=== PATIENT | male | born 1955 | race Caucasian/White ===

== ENCOUNTER → 2017-10-06 | Outpatient (CLI) | payer MEDICAID, MEDICARE | LOC: CFH 15:29 | PROVIDERS: ATTEND Neurological Surgery | DX: M51.34 Other intervertebral disc degeneration, thoracic region (principal); M51.26 Other intervertebral disc displacement, lumbar region; M48.061 Spinal stenosis, lumbar region without neurogenic claudication; E88.2 Lipomatosis, not elsewhere classified | CPT/HCPCS: 72146 ==

== ENCOUNTER → 2017-10-08 | Outpatient (CLI) | payer MEDICARE ==
[~2017-10-08] MED LIST: AMLO10TA2 PO; CHLO25TA PO; CHOL400T10 PO; CHOL500050 PO; CYAN1TAB29 PO; FISH1CAP PO; FOLI-17 PO; HYDR-3341 PO; LISI40TA PO; OMEP40CA6 PO; POLY17PO5 PO; PRAV20TA PO; THIA250T4 PO; TIOT18CA INH; fioricet PO
[2017-10-08 11:09] LABS: BASOPHILS # (AUTO) 0.04 x10^3/uL (0-0.1); BASOPHILS % (AUTO) 0 % (0-1); EOSINOPHILS # (AUTO) 0.07 x10^3/uL (0-0.4); EOSINOPHILS % (AUTO) 1 % (1-7); LYMPHOCYTES # (AUTO) 1.95 x10^3/uL (1-3.4); LYMPHOCYTES % (AUTO) 19 % (22-44); MD NO; MEAN CORPUSCULAR HEMOGLOBIN 30.7 pg (27.5-34.5); MEAN CORPUSCULAR HGB CONC 33.1 g/dL (33.2-36.2); MEAN CORPUSCULAR VOLUME 92.6 fL (81-97); MEAN PLATELET VOLUME 7.6 fL (7.4-10.4); MONOCYTES # (AUTO) 0.83 x10^3/uL (0.2-0.8); MONOCYTES % (AUTO) 8 % (2-9); NEUTROPHILS # (AUTO) 7.46 x10^3/uL (1.8-6.8); NEUTROPHILS % (AUTO) 72 % (42-75); PLATELET COUNT 240 x10^3/uL (130-400); RED CELL DISTRIBUTION WIDTH 14.7 % (9.4-14.8)
[2017-10-08 11:17] LABS: INTERNATIONAL NORMALIZED RATIO 0.96 (0.93-1.1)
[2017-10-08 11:21] LABS: ANION GAP 6 mmol/L (5-15); CALCIUM 9.8 mg/dL (8.5-10.1); CHLORIDE 102 mmol/L (98-107)
[2017-10-08 11:25] LABS: ALANINE AMINOTRANSFERASE 22 U/L (12-78); ALKALINE PHOSPHATASE 156 U/L (45-117); BILIRUBIN,TOTAL 0.7 mg/dL (0.2-1.0); CREATININE 0.97 mg/dL (0.7-1.3); TOTAL PROTEIN 7.7 g/dL (6.4-8.2)
== END | disposition home or self-care (01) ==
LOC: STAR 09:45
PROVIDERS: ATTEND Neurological Surgery
DX: Z01.818 Encounter for other preprocedural examination (principal); M48.061 Spinal stenosis, lumbar region without neurogenic claudication; I87.8 Other specified disorders of veins; J81.1 Chronic pulmonary edema; I45.10 Unspecified right bundle-branch block; I51.7 Cardiomegaly
CPT/HCPCS: 36415; 71046; 80053; 85025; 85610; 85730; 93005

== ENCOUNTER → 2018-02-16 | Outpatient (CLI) | payer MEDICARE ==
[~2018-02-16] MED LIST changes: -AMLO10TA2 PO; +AMLO10TA6 PO
== END | disposition home or self-care (01) ==
LOC: CFH 13:00
PROVIDERS: ATTEND Neurological Surgery
DX: M51.36 Other intervertebral disc degeneration, lumbar region (principal); M48.061 Spinal stenosis, lumbar region without neurogenic claudication; M25.78 Osteophyte, vertebrae; R60.9 Edema, unspecified
CPT/HCPCS: 72100; 72148

== ENCOUNTER → 2018-03-05 | Outpatient (CLI) | payer MEDICARE ==
[2018-03-05 14:30] LABS: BASOPHILS # (AUTO) 0.04 x10^3/uL (0-0.1); BASOPHILS % (AUTO) 1 % (0-1); EOSINOPHILS # (AUTO) 0.06 x10^3/uL (0-0.4); EOSINOPHILS % (AUTO) 1 % (1-7); LYMPHOCYTES # (AUTO) 2.32 x10^3/uL (1-3.4); LYMPHOCYTES % (AUTO) 24 % (22-44); MD NO; MEAN CORPUSCULAR HGB CONC 33.9 g/dL (33.2-36.2); MEAN CORPUSCULAR VOLUME 91.6 fL (81-97); MEAN PLATELET VOLUME 7.6 fL (7.4-10.4); MONOCYTES # (AUTO) 0.68 x10^3/uL (0.2-0.8); MONOCYTES % (AUTO) 7 % (2-9); NEUTROPHILS # (AUTO) 6.54 x10^3/uL (1.8-6.8); NEUTROPHILS % (AUTO) 68 % (42-75); PLATELET COUNT 339 x10^3/uL (130-400); RED BLOOD COUNT 5.82 x10^6/uL (4.38-5.82); RED CELL DISTRIBUTION WIDTH 13.8 % (9.4-14.8)
== END | disposition home or self-care (01) ==
LOC: RAD 13:57
PROVIDERS: ATTEND Neurological Surgery
DX: Z01.812 Encounter for preprocedural laboratory examination (principal); M48.062 Spinal stenosis, lumbar region with neurogenic claudication; R79.1 Abnormal coagulation profile
CPT/HCPCS: 36415; 71046; 85025

== ENCOUNTER 2019-08-21 16:19 | Inpatient (IN) | payer MEDICARE, OTHER ==
[~2019-08-21] VITALS: Ht 167.6 cm; Wt 88.1 kg
[~2019-08-21 16:19] MED LIST changes: -AMLO10TA6 PO; +AMLO10TA8 PO; +OMEP40CA42 PO; -OMEP40CA6 PO; -THIA250T4 PO; +THIA250T7 PO
[2019-08-21] MEDS ORDERED: SODIUM CHLORIDE FLUSH 10ML SYR IVF ONE (17:00)
--- NOTE | 2019-08-21 17:18 | NUR ---
Break Nurse note: PIV established. Lab work drawn and given to label drier. CXR at bedside. pt denies any additional needs at this time. Call light within reach.
[2019-08-21 17:28] LABS: BASOPHILS # (AUTO) 0.02 x10^3/uL (0-0.1); BASOPHILS % (AUTO) 0 % (0-1); EOSINOPHILS # (AUTO) 0.09 x10^3/uL (0-0.4); EOSINOPHILS % (AUTO) 2 % (1-7); LYMPHOCYTES # (AUTO) 1.25 x10^3/uL (1-3.4); LYMPHOCYTES % (AUTO) 23 % (22-44); MD NO; MEAN CORPUSCULAR HEMOGLOBIN 31.6 pg (27.5-34.5); MEAN PLATELET VOLUME 8.2 fL (7.4-10.4); MONOCYTES # (AUTO) 0.65 x10^3/uL (0.2-0.8); MONOCYTES % (AUTO) 12 % (2-9); NEUTROPHILS # (AUTO) 3.47 x10^3/uL (1.8-6.8); NEUTROPHILS % (AUTO) 63 % (42-75); PLATELET COUNT 196 x10^3/uL (130-400); RED BLOOD COUNT 5.31 x10^6/uL (4.38-5.82); RED CELL DISTRIBUTION WIDTH 15.1 % (9.4-14.8)
[2019-08-21 17:40] LABS: ALANINE AMINOTRANSFERASE 21 U/L (12-78); ALBUMIN 3.6 g/dL (3.4-5.0); ANION GAP 1 mmol/L (5-15); CALCIUM 9.6 mg/dL (8.5-10.1); CHLORIDE 108 mmol/L (98-107); CREATININE 0.65 mg/dL (0.7-1.3)
[2019-08-21 17:45] LABS: ALKALINE PHOSPHATASE 122 U/L (45-117); BILIRUBIN,TOTAL 0.1 mg/dL (0.2-1.0); TOTAL PROTEIN 7.4 g/dL (6.4-8.2); TROPONIN I < 0.015 ng/mL (0.000-0.045)
[2019-08-21] MEDS ORDERED: PIPERACILLIN/TAZO/PMX 3.375GM 50 ML IV ONE (18:00)
[2019-08-21] MEDS ORDERED: PIPERACILLIN/TAZO/PMX 3.375GM 50 ML ONE (18:14)
--- NOTE | 2019-08-21 18:20 | NUR ---
THROUGHPUT: PT DENIED FROM [facility]
--- NOTE | 2019-08-21 18:22 | NUR ---
AWAITING LAB DRAW OF BLOOD CULTURES X 2 BEFORE ADM OF ABX
--- NOTE | 2019-08-21 18:40 | NUR ---
UNABLE TO COMPLETE MED REC PT DOES NOT RECALL MEDICATIONS OR DOSES.
--- NOTE | 2019-08-21 18:46 | NUR ---
GIRLFRIEND DAVID CALLED. PER PT OK TO DISCUSS POC WITH GIRLFRIEND. MEI NUMBER IS
[2019-08-21] MEDS ORDERED: VANCOMYCIN PER PHARMACY MC PRN (19:00)
[2019-08-21] MEDS ORDERED: ERGOCALCIFEROL 50,000 UNIT CAPSULE PO SCH (19:00)
[2019-08-21] MEDS ORDERED: POLYETHYLENE GLYCOL 17 GM PACKET PO PRN (19:00)
[2019-08-21] MEDS ORDERED: BISACODYL 10 MG SUPP PR PRN (19:00)
[2019-08-21] MEDS ORDERED: ACETAMINOPHEN 325 MG TABLET PO PRN (19:00)
[2019-08-21] MEDS ORDERED: ONDANSETRON ODT 4 MG PO PRN (19:00)
[2019-08-21] MEDS ORDERED: PHARMACOKINETIC CONSULTATION MC ONE (21:00)
[2019-08-21] MEDS ORDERED: VANCOMYCIN 2,200 MG in SODIUM CHLORIDE 0.9% 500 ML IV ONE (21:00)
[2019-08-21] MEDS ORDERED: PHARMACOKINETIC MONITORING MC PRN (21:00)
[2019-08-21] MEDS: PRAVASTATIN 20 MG TABLET PO SCH (21:50)
[2019-08-21] MEDS: SODIUM CHLORIDE FLUSH 10ML SYR IVF SCH (21:51)
[2019-08-21] MEDS: HEPARIN 5,000 UNITS/ML, 1ML SQ SCH (21:53)
[2019-08-21] MEDS: NICOTINE 14MG/24 HR PATCH.TD24 TD SCH (21:55)
[2019-08-21 22:00] VITALS: BP 172/94
[2019-08-21] MEDS: BUTALB/APAP/CAFFEINE 50MG/325MG/40MG PO PRN (23:35)
[2019-08-22] MEDS: PIPERACILLIN/TAZO/PMX 3.375GM 50 ML IV SCH ×5 (01:33→20:20)
[2019-08-22 02:25] VITALS: BP 162/89
[2019-08-22 05:15] LABS: BASOPHILS # (AUTO) 0.02 x10^3/uL (0-0.1); BASOPHILS % (AUTO) 0 % (0-1); EOSINOPHILS # (AUTO) 0.12 x10^3/uL (0-0.4); EOSINOPHILS % (AUTO) 2 % (1-7); LYMPHOCYTES # (AUTO) 1.31 x10^3/uL (1-3.4); LYMPHOCYTES % (AUTO) 21 % (22-44); MD NO; MEAN CORPUSCULAR HEMOGLOBIN 31.8 pg (27.5-34.5); MEAN CORPUSCULAR HGB CONC 33.6 g/dL (33.2-36.2); MEAN CORPUSCULAR VOLUME 94.8 fL (81-97); MEAN PLATELET VOLUME 7.9 fL (7.4-10.4); MONOCYTES # (AUTO) 0.76 x10^3/uL (0.2-0.8); MONOCYTES % (AUTO) 12 % (2-9); NEUTROPHILS # (AUTO) 4.02 x10^3/uL (1.8-6.8); NEUTROPHILS % (AUTO) 65 % (42-75); PLATELET COUNT 184 x10^3/uL (130-400); RED BLOOD COUNT 5.03 x10^6/uL (4.38-5.82); RED CELL DISTRIBUTION WIDTH 14.9 % (9.4-14.8)
[2019-08-22 05:31] LABS: ANION GAP 3 mmol/L (5-15); CALCIUM 9.5 mg/dL (8.5-10.1); CHLORIDE 109 mmol/L (98-107); CREATININE 0.53 mg/dL (0.7-1.3)
[2019-08-22] MEDS: GUAIFENESIN/DM 200-20MG, 10ML UDC PO PRN ×2 (06:24→20:15)
[2019-08-22] MEDS: HEPARIN 5,000 UNITS/ML, 1ML SQ SCH ×2 (06:24→13:47)
[2019-08-22] MEDS: OMEPRAZOLE 20 MG CAPSULE.DR PO SCH (06:25)
[2019-08-22] MEDS: LISINOPRIL 40 MG TABLET PO SCH (08:36)
[2019-08-22] MEDS: CHOLECALCIFEROL 400 UNITS TABLET PO SCH (08:36)
[2019-08-22] MEDS: CYANOCOBALAMIN 1,000 MCG TABLET PO SCH (08:37)
[2019-08-22] MEDS: OMEGA-3/FISH OIL CAPSULE PO SCH (08:37)
[2019-08-22] MEDS: THIAMINE 100MG TABLET PO SCH (08:37)
[2019-08-22] MEDS: FOLIC ACID 1 MG TABLET PO SCH (08:38)
[2019-08-22] MEDS: AMLODIPINE 10 MG TAB PO SCH (08:38)
[2019-08-22] MEDS: CHLORTHALIDONE 25 MG TABLET PO SCH (08:38)
[2019-08-22] MEDS: POLYETHYLENE GLYCOL 17 GM PACKET PO SCH (08:38)
[2019-08-22] MEDS: SENNA/DOCUSATE TABLET PO SCH (08:38)
[2019-08-22] MEDS: BUTALB/APAP/CAFFEINE 50MG/325MG/40MG PO PRN ×3 (08:38→21:03)
[2019-08-22] MEDS: SODIUM CHLORIDE FLUSH 10ML SYR IVF SCH ×2 (08:39→20:21)
[2019-08-22 08:45] VITALS: BP 167/95
[2019-08-22] MEDS ORDERED: CYANOCOBALAMIN 1,000 MCG TABLET PO SCH (09:00)
[2019-08-22] MEDS ORDERED: IPRATROPIUM 0.5 MG/2.5 ML INHA NPPB SCH (09:00)
[2019-08-22 14:00] VITALS: BP 147/83
[2019-08-22] MEDS: VANCOMYCIN 1,700 MG in SODIUM CHLORIDE 0.9% 250 ML IV SCH (15:26)
[2019-08-22] MEDS: NICOTINE 14MG/24 HR PATCH.TD24 TD SCH (20:20)
[2019-08-22] MEDS: PRAVASTATIN 20 MG TABLET PO SCH (20:20)
[2019-08-22 20:24] VITALS: BP 145/85
[2019-08-22] MEDS: ENOXAPARIN 40 MG/0.4 ML SQ SCH (22:09)
[2019-08-23] MEDS: PIPERACILLIN/TAZO/PMX 3.375GM 50 ML IV SCH ×4 (02:20→20:59)
[2019-08-23 02:38] VITALS: BP 141/70
[2019-08-23 06:13] LABS: ANION GAP 4 mmol/L (5-15); CHLORIDE 105 mmol/L (98-107)
[2019-08-23 06:22] LABS: BASOPHILS # (AUTO) 0.02 x10^3/uL (0-0.1); BASOPHILS % (AUTO) 0 % (0-1); EOSINOPHILS % (AUTO) 2 % (1-7); LYMPHOCYTES % (AUTO) 27 % (22-44); MD NO; MEAN CORPUSCULAR HEMOGLOBIN 31.5 pg (27.5-34.5); MEAN CORPUSCULAR HGB CONC 33.3 g/dL (33.2-36.2); MEAN CORPUSCULAR VOLUME 94.7 fL (81-97); MEAN PLATELET VOLUME 8.2 fL (7.4-10.4); MONOCYTES # (AUTO) 0.61 x10^3/uL (0.2-0.8); MONOCYTES % (AUTO) 11 % (2-9); NEUTROPHILS # (AUTO) 3.32 x10^3/uL (1.8-6.8); NEUTROPHILS % (AUTO) 60 % (42-75); PLATELET COUNT 190 x10^3/uL (130-400); RED BLOOD COUNT 5.29 x10^6/uL (4.38-5.82); RED CELL DISTRIBUTION WIDTH 14.7 % (9.4-14.8)
[2019-08-23 08:10] VITALS: BP 149/85
[2019-08-23] MEDS: OMEGA-3/FISH OIL CAPSULE PO SCH (08:18)
[2019-08-23] MEDS: CYANOCOBALAMIN 1,000 MCG TABLET PO SCH (08:18)
[2019-08-23] MEDS: THIAMINE 100MG TABLET PO SCH (08:18)
[2019-08-23] MEDS: SENNA/DOCUSATE TABLET PO SCH (08:19)
[2019-08-23] MEDS: LISINOPRIL 40 MG TABLET PO SCH (08:19)
[2019-08-23] MEDS: FOLIC ACID 1 MG TABLET PO SCH (08:19)
[2019-08-23] MEDS: CHLORTHALIDONE 25 MG TABLET PO SCH (08:19)
[2019-08-23] MEDS: AMLODIPINE 10 MG TAB PO SCH (08:19)
[2019-08-23] MEDS: POLYETHYLENE GLYCOL 17 GM PACKET PO SCH ×2 (08:20→08:57)
[2019-08-23] MEDS: CHOLECALCIFEROL 400 UNITS TABLET PO SCH (08:20)
[2019-08-23] MEDS: SODIUM CHLORIDE FLUSH 10ML SYR IVF SCH ×2 (08:21→21:00)
[2019-08-23] MEDS: OMEPRAZOLE 20 MG CAPSULE.DR PO SCH (08:21)
[2019-08-23] MEDS: VANCOMYCIN 1,700 MG in SODIUM CHLORIDE 0.9% 250 ML IV SCH (09:54)
[2019-08-23] MEDS: BUTALB/APAP/CAFFEINE 50MG/325MG/40MG PO PRN ×2 (15:18→21:00)
[2019-08-23 15:22] VITALS: BP 143/91
[2019-08-23 19:32] VITALS: BP 119/76
[2019-08-23] MEDS: NICOTINE 14MG/24 HR PATCH.TD24 TD SCH (20:59)
[2019-08-23] MEDS: PRAVASTATIN 20 MG TABLET PO SCH (20:59)
[2019-08-23] MEDS: ENOXAPARIN 40 MG/0.4 ML SQ SCH (20:59)
[2019-08-23 23:01] VITALS: BP 127/80
[2019-08-24 01:27] VITALS: BP 122/78
[2019-08-24] MEDS: PIPERACILLIN/TAZO/PMX 3.375GM 50 ML IV SCH ×3 (02:34→13:18)
[2019-08-24] MEDS: VANCOMYCIN 1,700 MG in SODIUM CHLORIDE 0.9% 250 ML IV SCH (04:03)
[2019-08-24 07:23] VITALS: BP 128/73
[2019-08-24] MEDS: POLYETHYLENE GLYCOL 17 GM PACKET PO SCH (07:29)
[2019-08-24] MEDS: AMLODIPINE 10 MG TAB PO SCH (08:19)
[2019-08-24] MEDS: LISINOPRIL 40 MG TABLET PO SCH (08:19)
[2019-08-24] MEDS: CHOLECALCIFEROL 400 UNITS TABLET PO SCH (08:19)
[2019-08-24] MEDS: CHLORTHALIDONE 25 MG TABLET PO SCH (08:19)
[2019-08-24] MEDS: SENNA/DOCUSATE TABLET PO SCH (08:19)
[2019-08-24] MEDS: FOLIC ACID 1 MG TABLET PO SCH (08:19)
[2019-08-24] MEDS: CYANOCOBALAMIN 1,000 MCG TABLET PO SCH (08:19)
[2019-08-24] MEDS: OMEPRAZOLE 20 MG CAPSULE.DR PO SCH (08:19)
[2019-08-24] MEDS: OMEGA-3/FISH OIL CAPSULE PO SCH (08:19)
[2019-08-24] MEDS: THIAMINE 100MG TABLET PO SCH (08:55)
[2019-08-24] MEDS: BUTALB/APAP/CAFFEINE 50MG/325MG/40MG PO PRN (08:55)
[2019-08-24] MEDS: SODIUM CHLORIDE FLUSH 10ML SYR IVF SCH (08:55)
[2019-08-24] MEDS ORDERED: AMOX1TAB64 PO (13:43)
[2019-08-24 14:12] VITALS: BP 99/62
== END 2019-08-24 14:49 | disposition home or self-care (01) | DRG 177 ==
LOC: ED 17:00 → EDIP 18:07 → 3WST 20:00 → 3N 08-23 18:19
PROVIDERS: ADMIT Internal Medicine; ATTEND Family Medicine
DX: J15.6 Pneumonia due to other Gram-negative bacteria (principal); J96.01 Acute respiratory failure with hypoxia; I50.30 Unspecified diastolic (congestive) heart failure; F17.200 Nicotine dependence, unspecified, uncomplicated; E78.5 Hyperlipidemia, unspecified; G43.909 Migraine, unspecified, not intractable, without status migrainosus; I11.0 Hypertensive heart disease with heart failure; Y95 Nosocomial condition; Z20.828 Contact with and (suspected) exposure to other viral communicable diseases
CPT/HCPCS: 36415; 71045; 80048; 80053; 80202; 80307; 83880; 84484; 85025; 87040; 87070; 87205; 93005; 96374; 96375; 99285; G0378; J1644; J1650; J2543; J3370; J7040; J7050

== ENCOUNTER 2021-01-18 13:56 | Inpatient (IN) | payer MEDICARE, OTHER ==
[~2021-01-18] VITALS: Ht 167.6 cm; Wt 81.1 kg
[~2021-01-18 13:56] MED LIST changes: +AMLO-211 PO; -AMLO10TA8 PO; +AMOX1TAB64 PO; -FOLI-17 PO; +FOLI1TAB32 PO; -LISI40TA PO; +LISI40TA9 PO; -OMEP40CA42 PO; +OMEP40CA8 PO
--- NOTE | 2021-01-18 15:09 | NUR ---
ACUTE CARE OCCUPATIONAL THERAPIST: CALLED FOR ROOM, NO ANSWER
[2021-01-18 15:16] LABS: BASOPHILS % (AUTO) 1 % (0-1); EOSINOPHILS % (AUTO) 1 % (1-7); LYMPHOCYTES % (AUTO) 21 % (22-44); MEAN CORPUSCULAR HEMOGLOBIN 32.5 pg (27.5-34.5); MEAN CORPUSCULAR HGB CONC 34.6 g/dL (33.2-36.2); MEAN PLATELET VOLUME 8.1 fL (7.4-10.4); MONOCYTES % (AUTO) 8 % (2-9); NEUTROPHILS % (AUTO) 69 % (42-75); PLATELET COUNT 204 x10^3/uL (130-400); RED BLOOD COUNT 6.46 x10^6/uL (4.38-5.82); RED CELL DISTRIBUTION WIDTH 15.4 % (9.4-14.8)
[2021-01-18 15:16] LABS: RAPID INFLUENZA A Negative (Negative); RAPID INFLUENZA B Negative (Negative)
[2021-01-18 15:29] LABS: ALBUMIN 3.6 g/dL (3.4-5.0); ANION GAP 9 mmol/L (5-15); CALCIUM 9.6 mg/dL (8.5-10.1); CHLORIDE 105 mmol/L (98-107)
[2021-01-18 15:33] LABS: ALANINE AMINOTRANSFERASE 28 U/L (12-78); ALKALINE PHOSPHATASE 110 U/L (45-117); BILIRUBIN,TOTAL 0.6 mg/dL (0.2-1.0); CREATININE 0.66 mg/dL (0.7-1.3); TOTAL PROTEIN 7.6 g/dL (6.4-8.2)
--- NOTE | 2021-01-18 15:46 | NUR ---
fermentologist note: Pt to room from lobby, ambulatory with steady gait.
--- NOTE | 2021-01-18 16:06 | NUR ---
PT TO ROOM 35 W/ C/O COUGH STARTED WHEN THE SMOKE STARTED OVER A MONTH AGO. PT STATES COUGH THAT STARTS AND PER PT "HAS NO CAP" MEANING PT WILL START COUGHING AND DOES NOT STOP. PER PT IS A SMOKER. PT RESTING ON GURNEY. NADN. MONITORS APPLIED. O2 NOTED TO BE 85% RA W/ GOOD WAVEFORM. PT PLACED ON 3L NC. WARM BLANKET PROVIDED. CALL LIGHT IN REACH. ERP DR. BOYLE AT BEDSIDE. AWARE OF PT'S O2 SATS.
--- NOTE | 2021-01-18 16:58 | NUR ---
PT RESTING ON GURBANQUETE. NADN. VSS ON 3L HI.
[2021-01-18] MEDS ORDERED: CEFTRIAXONE 1,000 MG in DEXTROSE 5% 50 ML IVPB ONE (17:30)
[2021-01-18] MEDS: AZITHROMYCIN 500 MG in SODIUM CHLORIDE 0.9% 250 ML IVPB ONE ×2 (17:30→19:07)
--- NOTE | 2021-01-18 17:36 | NUR ---
PT RESTING ON GURNEY. NADN. VARELA.
[2021-01-18] MEDS ORDERED: BUTALB/APAP/CAFFEINE 50MG/325MG/40MG PO ONE ×2 (18:00→22:00)
--- NOTE | 2021-01-18 18:06 | NUR ---
THROUGHPUT: PT TRANSFER DECLINED BY [facility] ([place]), [facility] FORM FAXED & PLACED IN FOLDER WITH FAX CONFIRMATION, EMAIL SENT.
--- NOTE | 2021-01-18 18:30 | NUR ---
BREAK RN: PT MEDICATED PER EMAR, MEAL TRAY PROVIDED.
--- NOTE | 2021-01-18 18:57 | NUR ---
PT RESTING ON GURNEY. NADN. VARELA.
[2021-01-18] MEDS ORDERED: SODIUM CHLORIDE FLUSH 10ML SYR IVF PRN (19:00)
[2021-01-18] MEDS ORDERED: DOCUSATE 100 MG CAPSULE PO PRN (19:00)
--- NOTE | 2021-01-18 19:08 | NUR ---
PT RESTING ON GURNEY. SARABIA VSS. AWARE OF POC FOR ADMISSION.
--- NOTE | 2021-01-18 20:01 | NUR ---
PT RESTING ON GURNEY. NADN. VARELA.
[2021-01-18 20:14] LABS: TROPONIN I < 0.015 ng/mL (0.000-0.045)
--- NOTE | 2021-01-18 20:46 | NUR ---
PT RESTING ON GURNEY. NADN. VARELA.
--- NOTE | 2021-01-18 20:51 | NUR ---
REPORT GIVEN TO PEPITO PATEL.
--- NOTE | 2021-01-18 20:57 | NUR ---
REPORT GIVEN TO PEPITO ZUNIGA. ALL QUESTIONS ANSWERED. AWAITING PT TRANSPORT.
[2021-01-18] MEDS ORDERED: MELATONIN 5 MG TABLET PO PRN (21:00)
[2021-01-18 21:10] VITALS: BP_SYST 122; BP_SYST 146; BP_DIAS 64; BP_DIAS 81
[2021-01-18] MEDS: ENOXAPARIN 40 MG/0.4 ML SQ SCH (22:37)
[2021-01-18] MEDS: ALBUTEROL-IPRATROPIUM MDI INH INH SCH (22:37)
[2021-01-19 02:33] VITALS: BP 129/84
[2021-01-19 06:15] LABS: HCT (SEDRATE) 58.2 % (39.2-51.8)
[2021-01-19 06:18] LABS: BASOPHILS % (AUTO) 0 % (0-1); EOSINOPHILS % (AUTO) 0 % (1-7); LYMPHOCYTES % (AUTO) 16 % (22-44); MEAN CORPUSCULAR HEMOGLOBIN 31.9 pg (27.5-34.5); MEAN CORPUSCULAR HGB CONC 33.8 g/dL (33.2-36.2); MEAN PLATELET VOLUME 8.2 fL (7.4-10.4); MONOCYTES % (AUTO) 6 % (2-9); NEUTROPHILS % (AUTO) 78 % (42-75); PLATELET COUNT 213 x10^3/uL (130-400); RED BLOOD COUNT 6.12 x10^6/uL (4.38-5.82); RED CELL DISTRIBUTION WIDTH 15.3 % (9.4-14.8)
[2021-01-19 06:26] LABS: ALBUMIN 3.3 g/dL (3.4-5.0); ANION GAP 6 mmol/L (5-15); CALCIUM 9.7 mg/dL (8.5-10.1); CHLORIDE 107 mmol/L (98-107)
[2021-01-19 06:28] LABS: D-DIMER 0.31 ug/mlFEU (0.00-0.52); INTERNATIONAL NORMALIZED RATIO 1.03 (0.93-1.1)
[2021-01-19 06:30] LABS: ALANINE AMINOTRANSFERASE 23 U/L (12-78); ALKALINE PHOSPHATASE 102 U/L (45-117); BILIRUBIN,TOTAL 0.4 mg/dL (0.2-1.0); CREATINE KINASE, TOTAL 68 U/L (39-308); CREATININE 0.62 mg/dL (0.7-1.3); TOTAL PROTEIN 7.1 g/dL (6.4-8.2)
[2021-01-19 08:21] VITALS: BP 160/90
[2021-01-19] MEDS: ALBUTEROL-IPRATROPIUM MDI INH INH SCH ×4 (08:38→21:05)
[2021-01-19] MEDS: TIOTROPIUM BROMIDE 18 MCG/INH INH SCH (08:39)
[2021-01-19 12:18] VITALS: BP 175/87
[2021-01-19] MEDS: CEFTRIAXONE 1,000 MG in DEXTROSE 5% 50 ML IVPB SCH (17:07)
[2021-01-19] MEDS ORDERED: CEFTRIAXONE 1,000 MG in DEXTROSE 5% 50 ML IVPB SCH (17:30)
[2021-01-19] MEDS: ACETAMINOPHEN 325 MG TABLET PO PRN (18:10)
[2021-01-19] MEDS: AZITHROMYCIN 500 MG in SODIUM CHLORIDE 0.9% 250 ML IV SCH (18:10)
[2021-01-19] MEDS: ENOXAPARIN 40 MG/0.4 ML SQ SCH (21:05)
[2021-01-19 21:11] VITALS: BP 156/93
[2021-01-20 01:04] VITALS: BP 165/84
[2021-01-20] MEDS ORDERED: GUAIFENESIN/COD200MG-20MG/10ML LIQUID PO PRN (03:00)
[2021-01-20] MEDS ORDERED: GUAIFENESIN 100 MG/5 ML, 5ML UDC PO PRN (03:30)
[2021-01-20 08:00] VITALS: BP 155/82
[2021-01-20] MEDS: ALBUTEROL-IPRATROPIUM MDI INH INH SCH ×4 (08:17→20:00)
[2021-01-20] MEDS: TIOTROPIUM BROMIDE 18 MCG/INH INH SCH (08:18)
[2021-01-20] MEDS: ACETAMINOPHEN 325 MG TABLET PO PRN (08:21)
[2021-01-20 14:00] VITALS: BP 155/82
[2021-01-20] MEDS ORDERED: PRED20TA PO (15:01)
[2021-01-20] MEDS ORDERED: AZIT250T PO (15:01)
[2021-01-20] MEDS: CEFTRIAXONE 1,000 MG in DEXTROSE 5% 50 ML IVPB SCH (17:30)
[2021-01-20] MEDS: AZITHROMYCIN 500 MG in SODIUM CHLORIDE 0.9% 250 ML IV SCH (17:55)
[2021-01-20] MEDS: ENOXAPARIN 40 MG/0.4 ML SQ SCH (21:00)
[2021-01-21 08:11] VITALS: BP 185/95
[2021-01-21] MEDS: ALBUTEROL-IPRATROPIUM MDI INH INH SCH ×3 (08:48→15:33)
[2021-01-21] MEDS: TIOTROPIUM BROMIDE 18 MCG/INH INH SCH (08:49)
[2021-01-21 09:20] VITALS: BP 202/103
[2021-01-21] MEDS ORDERED: METOPROLOL SUCCINATE 50 MG TAB.ER.24H PO ONE (09:30)
[2021-01-21 15:02] VITALS: BP 165/89
== END 2021-01-21 17:18 | disposition home or self-care (01) | DRG 193 ==
LOC: ED 17:50 → EDIP 18:50 → 3N 21:11
PROVIDERS: ADMIT Internal Medicine; ATTEND Family Medicine
DX: J15.9 Unspecified bacterial pneumonia (principal); J96.01 Acute respiratory failure with hypoxia; I50.30 Unspecified diastolic (congestive) heart failure; J44.0 Chronic obstructive pulmonary disease with (acute) lower respiratory infection; J44.1 Chronic obstructive pulmonary disease with (acute) exacerbation; Z20.822 Contact with and (suspected) exposure to COVID-19; E78.5 Hyperlipidemia, unspecified; F17.210 Nicotine dependence, cigarettes, uncomplicated; G43.909 Migraine, unspecified, not intractable, without status migrainosus; I11.0 Hypertensive heart disease with heart failure; Z71.6 Tobacco abuse counseling
CPT/HCPCS: 36415; 71045; 80053; 82550; 83605; 83880; 84484; 85025; 85379; 85384; 85610; 85651; 85730; 87040; 87400; 93005; 96365; 99285; G0378; J0456; J0696; J1650; U0005; J7050; J7512; U0003